=== PATIENT | female | born 1990 | race Two or more races ===

== ENCOUNTER → 2018-06-20 | Emergency (ER) | payer OTHER ==
[~2018-06-20] VITALS: Ht 160 cm; Wt 55.8 kg
[~2018-06-20] MED LIST: FOLIC ACID1 MG; INTESTINEX680 M1 PO; KEFLEX500 MG PO; PEPCID AC20 MG PO
== END | disposition home or self-care (01) ==
LOC: ER 22:40
DX: O20.8 Other hemorrhage in early pregnancy (principal); Z34.01 Encounter for supervision of normal first pregnancy, first trimester

== ENCOUNTER 2018-12-07 12:30 | Inpatient (IN) | payer OTHER ==
[~2018-12-07] VITALS: Ht 160 cm; Wt 150.0 kg
== END 2018-12-26 17:41 | disposition home or self-care (01) | DRG 807 ==
LOC: LDR 12-23 20:05 → SURG-SUITE 12-24 23:39 → LDR 12-30 12:30
PROVIDERS: ADMIT Obstetrics & Gynecology
PROC: 3E0P7VZ Introduction of Hormone into Female Reproductive, Via Natural or Artificial Opening (ICD-10-PCS; 2018-12-23)
PROC: 3E033VJ Introduction of Other Hormone into Peripheral Vein, Percutaneous Approach (ICD-10-PCS; 2018-12-23)
PROC: 4A1HXCZ Monitoring of Products of Conception, Cardiac Rate, External Approach (ICD-10-PCS; 2018-12-23)
PROC: 10E0XZZ Delivery of Products of Conception, External Approach (ICD-10-PCS; principal; 2018-12-24)
PROC: 0KQM0ZZ Repair Perineum Muscle, Open Approach (ICD-10-PCS; 2018-12-24)
PROC: 10907ZC Drainage of Amniotic Fluid, Therapeutic from Products of Conception, Via Natural or Artificial Opening (ICD-10-PCS; 2018-12-24)
DX: O70.1 Second degree perineal laceration during delivery (principal); Z37.0 Single live birth; Z3A.39 39 weeks gestation of pregnancy